=== PATIENT | male | born 1955 | race Caucasian/White ===

== ENCOUNTER 2019-04-08 12:02 | Outpatient (RCR) | payer OTHER, SELFPAY | END 2019-04-29 00:01 | LOC: PULRHB 12:02 | PROVIDERS: Family Provider Internal Medicine Pulmonary Disease; Visit Provider Internal Medicine Pulmonary Disease | DX: J44.9 Chronic obstructive pulmonary disease, unspecified (principal) | CPT/HCPCS: G0424 ×7 ==

== ENCOUNTER 2019-04-30 06:00 | Outpatient (RCR) | payer OTHER, SELFPAY | END 2019-05-30 23:59 | disposition home or self-care (01) | LOC: PULRHB 06:00 | PROVIDERS: Family Provider Internal Medicine Pulmonary Disease; Visit Provider Internal Medicine Pulmonary Disease | DX: J44.9 Chronic obstructive pulmonary disease, unspecified (principal) | CPT/HCPCS: G0424 ==

== ENCOUNTER 2019-06-04 07:11 | Outpatient (RCR) | payer OTHER, SELFPAY | END 2019-06-28 23:59 | disposition home or self-care (01) | LOC: PULRHB 07:11 | PROVIDERS: Family Provider Internal Medicine Pulmonary Disease; Visit Provider Internal Medicine Pulmonary Disease | DX: J44.9 Chronic obstructive pulmonary disease, unspecified (principal) | CPT/HCPCS: G0424 ==

== ENCOUNTER 2019-06-29 06:00 | Outpatient (RCR) | payer OTHER, SELFPAY | END 2019-07-29 23:59 | disposition home or self-care (01) | LOC: PULRHB 06:00 | PROVIDERS: Family Provider Internal Medicine Pulmonary Disease; Visit Provider Internal Medicine Pulmonary Disease | DX: J44.9 Chronic obstructive pulmonary disease, unspecified (principal) | CPT/HCPCS: G0424 ==

== ENCOUNTER 2022-03-12 09:15 | Emergency (ER) | payer OTHER, SELFPAY ==
[2022-03-12 09:23] VITALS: BP 165/98; PULSE 69; RESP 16; TEMP 36.4; O2SAT 98; BMI 23.0
--- NOTE | 2022-03-12 09:39 | W.ED.BACK ---
HPI - Back Pain/Injury General: Chief Complaint: Back Pain/Injury Stated Complaint: Back pain Time Seen by Provider: 03/12/22 09:17 Source: patient Mode of arrival: ambulatory History of Present Illness: 66 yo male presents emergency room with back pain. Evidently this is been a chronic essentially on again off again issue for some time for him recently has become worse. Patient was seen [facility] and was told to come to the emergency room to get an MRI. He has pain that he localizes to the right lower back he is not have any difficulty with bowel or bladder no urinary retention or fecal incontinence. Is no precipitating fall or injury. This been progressively worsening for the last 2 weeks. Does not really have any radicular pain into the legs either. He is taking a lot of aspirin for which only gives moderate relief. MD elicited complaint: back pain Pertinent past history: prior back pain Onset (ago): minute(s) Timing: constant Quality: aching and spasming Location: lumbar spine Radiation: none Exacerbating factors: sitting upright and walking Associated symptoms: Deny abdominal pain, arthralgias, chills, change in bowel habits, difficulty walking, dysuria, fatigue, fecal incontinence, fever(s), hematuria, myalgias, nausea, numbness, syncope, tingling/numbness/burning, urinary frequency, urinary urgency, vomiting or weakness Review of Systems Const: Denies: fever(s), chills, fatigue or malaise ENMT: Denies: throat pain, ear or mastoid pain, nasal discharge or nasal congestion Card: Denies: chest pain, palpitations or syncope Resp: Denies: dyspnea, productive cough or non-productive cough GI: Denies: abdominal pain, nausea, vomiting, fecal incontinence or change in bowel habits : Denies: difficulty urinating, dysuria, urinary frequency, urinary urgency or hematuria Musc: Reports: back pain; Denies: extremity pain Skin/Breast: Denies: rash or pruritus Neuro: Denies: difficulty walking PFSH ED PFSH: Medical History (Updated 03/24/22 @ 06:59 by Leandro Hdez DO) Chronic back pain Social History (Updated 03/24/22 @ 07:00 by Leandro Hdez DO) Smoking and tobacco status: never smoked Alcohol intake: current Physical Exam Const: COMMON NORMALS: no acute distress GENERAL APPEARANCE: cooperative and comfortable ORIENTATION/CONSCIOUSNESS: Yes awake, Yes oriented to person, Yes oriented to place and Yes oriented to time HENMT: COMMON NORMALS: normocephalic, atraumatic and hearing grossly normal bilaterally HEAD & SCALP: normocephalic and atraumatic Resp: COMMON NORMALS: normal respiratory effort, No retractions, No use of accessory muscles and clear to auscultation bilaterally AUSCULTATION: clear to auscultation bilaterally Cardio: COMMON NORMALS: regular rate, regular rhythm and No murmurs present (Cardio) RATE: regular rate RHYTHM: regular rhythm GI: COMMON NORMALS: Soft to palpation and No hepatosplenomegaly present AUSCULTATION: Yes normoactive bowel sounds PALPATION: Yes Soft to palpation, No Tenderness to palpation present (GI), No Guarding due to palpation present (GI) and Yes No hepatosplenomegaly present Extremity: COMMON NORMALS: normal to inspection, capillary refill normal, no clubbing, cyanosis or edema, no calf tenderness and no pedal edema Neuro: SENSORIUM/ORIENTATION: Yes oriented to person, Yes oriented to place and Yes oriented to time OTHER: Straight leg raising is negative sensation lower extremities normal, 5 of 5 strength, dorsal and plantar flexion 5/5 Skin: COMMON NORMALS: no rashes or lesions noted GENERAL SKIN EXAM: no rashes or lesions noted Course Vital Signs: Vital signs: Vital Signs Temperature 97.6 F 03/12/22 10:25 Pulse Rate 69 03/12/22 10:25 Respiratory Rate 16 03/12/22 10:25 Blood Pressure 165/98 03/12/22 10:25 Pulse Oximetry 98 03/12/22 10:25 Oxygen Delivery Ma thod 03/12/22 09:23 MDM - Back Pain/Injury Medical Decision Making No signs of cauda equina syndrome. Started on steroids anti-inflammatories gave muscle relaxers and started Lyrica follow-up with outpatient scheduled MRI. Medical Records I reviewed the patient's medical records. Labs I reviewed the patient's lab results. Discharge Plan Discharge Patient Disposition: Home Clinical Impression: Strain of lumbar region Condition: Stable Prescriptions: New prednisone 20 mg tablet 20 mg PO TID Qty: 15 0RF Rx Instructions: 1 p.o. 3 times daily x3 days, 1 p.o. twice daily x2 days, 1 p.o. daily x2 days diclofenac sodium 75 mg tablet,delayed release (DR/EC) 75 mg PO Q12H PRN (Reason: pain) Qty: 20 0RF tizanidine 4 mg tablet 4 mg PO Q6H PRN (Reason: muscle spasticity) Qty: 20 0RF Rx Instructions: do not exceed 3 doses per 24 hrs Lyrica 75 mg capsule 75 mg PO BID Qty: 60 0RF Discharge Orders: Discharge ED (Routine); Ordered 03/12/22 Ordered By: Leandro Hdez Referrals: Ronen Mcgarry DO [Primary Care Provider] - Discharge Diet: Usual diet Discharge Activity: Increase activity as tolerated Patient Instructions: Opioid Safety, Pain Management Activity Restrictions/Additional Instructions: Follow-up with your primary care doctor for further evaluation possible referral to physical therapy or advanced imaging if does not improve. Coding Level of Care Code ED Addiction Psychiatrist for Makayla Chamberlain
[2022-03-12] MEDS: ketorolac 60 mg/2 mL INJ IM (10:22)
[2022-03-12] MEDS: dexamethasone 10 mg/mL INJ IM (10:23)
[2022-03-12] MEDS: orphenadrine 30 mg/mL Inj 2 mL 60 MG IM (10:23)
[2022-03-12 10:25] VITALS: BP 165/98; PULSE 69; RESP 16; TEMP 36.4; O2SAT 98
== END 2022-03-12 10:30 | disposition home or self-care (01) ==
PROVIDERS: Emergency Provider Family Medicine; PCP Emergency Medicine Emergency Medical Services
DX: S39.012A Strain of muscle, fascia and tendon of lower back, initial encounter (principal); X58.XXXA Exposure to other specified factors, initial encounter; G89.29 Other chronic pain
CPT/HCPCS: 96372; 99284; J1100; J1885; J2360

== ENCOUNTER 2023-06-04 09:12 | Emergency (ER) | payer OTHER, SELFPAY ==
[2023-06-04 09:39] VITALS: BP 112/77; PULSE 94; RESP 12; TEMP 36.5; O2SAT 99; BMI 24.7
--- NOTE | 2023-06-04 09:48 | ED_ITS ---
HPI - Abdominal Pain 2 General: Chief Complaint: Abdominal Pain Stated Complaint: abd pain Time Seen by Provider: 06/04/23 09:12 Source: patient Mode of arrival: ambulatory History of Present Illness: 67-year-old male presents emergency room complaining of right upper quadrant abdominal pain intermittently for the last couple of months. He was seen at the [facility] today and directed here. He had acholic stools he denies any dysuria urgency frequency. He notices worse when he eats better if he does not. He does have a history of hepatitis C and was previously treated and considered to have been cleared. He previously had an appendectomy no other abdominal surgeries. MD elicited complaint: abdominal pain Pertinent past history: none Onset (ago): minute(s) Pain Consistency: constant Location: RUQ Severity: mild Quality: sharp Radiation: back Exacerbating factors: nothing Relieving factors: nothing Associated Symptoms: Reports belching, bloating, nausea, poor appetite and other (Acholic stools); Denies anorexia, change in bowel habits, change in stool character, chills, coffee ground emesis, constipation, GI cramping, diarrhea, dyspepsia, dysuria, excessive flatus, fever(s), heartburn, hematochezia, hematuria, hematemesis, fecal incontinence, loose stools, melena, syncope and vomiting Review of Systems 2 Const: Denies: fever(s) or chills Card: Denies: chest pain or syncope Resp: Denies: dyspnea GI: Reports: nausea, bloating, belching and other (Acholic stools); Denies: abdominal pain, vomiting, hematemesis, coffee ground emesis, heartburn, diarrhea, constipation, GI cramping, excessive flatus, fecal incontinence, change in bowel habits, change in stool character, hematochezia or melena : Denies: dysuria, urinary frequency, urinary urgency or hematuria Musc: Denies: neck pain or back pain Skin/Breast: Denies: rash PFSH ED 2 PFSH: Medical History Chronic back pain Social History Smoking and tobacco/nicotine status: never used tobacco/nicotine Alcohol intake: current Physical Exam 2 Const: COMMON NORMALS: no acute distress GENERAL APPEARANCE: cooperative and comfortable ORIENTATION/CONSCIOUSNESS: Yes awake, Yes oriented to person, Yes oriented to place and Yes oriented to time HENMT: COMMON NORMALS: normocephalic, atraumatic and hearing grossly normal bilaterally HEAD & SCALP: normocephalic and atraumatic Resp: COMMON NORMALS: normal respiratory effort, No retractions, No use of accessory muscles and clear to auscultation bilaterally AUSCULTATION: clear to auscultation bilaterally Cardio: COMMON NORMALS: regular rate, regular rhythm and No murmurs present (Cardio) RATE: regular rate RHYTHM: regular rhythm GI: COMMON NORMALS: Soft to palpation and No hepatosplenomegaly present A USCULTATION: Yes normoactive bowel sounds PALPATION: Yes Soft to palpation, No Tenderness to palpation present (GI), No Guarding due to palpation present (GI) and Yes No hepatosplenomegaly present Extremity: COMMON NORMALS: normal to inspection, capillary refill normal, no clubbing, cyanosis or edema, no calf tenderness and no pedal edema Neuro: SENSORIUM/ORIENTATION: Yes oriented to person, Yes oriented to place and Yes oriented to time Skin: COMMON NORMALS: no rashes or lesions noted GENERAL SKIN EXAM: no rashes or lesions noted Course 2 Vital Signs: Vital signs: Vital Signs Temperature 97.7 F 06/04/23 09:39 Pulse Rate 94 06/04/23 09:39 Respiratory Rate 12 06/04/23 09:39 Blood Pressure 112/77 06/04/23 09:39 Pulse Oximetry 99 06/04/23 09:39 Oxygen Delivery Me thod Room Air 06/04/23 09:39 MDM - Abdominal Pain Medical Decision Making Labs and imaging reviewed no leukocytosis normal liver function normal T. bili gallbladder ultrasound unremarkable. Patient otherwise feeling fine discharge home follow-up with primary care for further evaluation if persisting. Patient did have 5-9 white blood cells per high-power field however is not having any urinary tract symptoms, +1 leukocyte Estrace negative nitrates culture of urine pending. Medical Records I reviewed the patient's medical records. Lab Data I reviewed the patient's lab results. 06/04/23 10:05 06/04/23 10:05 Labs/Radiology: Laboratory Results WBC 10.31 10^3/uL (3.29-11.43) 06/04/23 10:05 RBC 4.90 10^6/uL (3.85-5.65) 06/04/23 10:05 Hgb 15.80 g/dL (11.27-16.99) 06/04/23 10:05 Hct 45.7 % (37-53) 06/04/23 10:05 MCV 93.3 fl (82-101) 06/04/23 10:05 MCH 32.2 pg (27-33) 06/04/23 10:05 MCHC 34.6 g/dL (30-55) 06/04/23 10:05 RDW 12.5 % (12.1-15.1) 06/04/23 10:05 Plt Count 279 10^3/cmm (157-399) 06/04/23 10:05 MPV 9.2 fL (7.4-10.4) 06/04/23 10:05 Neut % (Auto) 74.3 % 06/04/23 10:05 Lymph % (Auto) 16.2 % 06/04/23 10:05 Chambers % (Auto) 8.8 % 06/04/23 10:05 Eos % (Auto) 0.0 % 06/04/23 10:05 Baso % (Auto) 0.3 % 06/04/23 10:05 Neut # (Auto) 7.66 10^3/uL (1.8-7.7) 06/04/23 10:05 Lymph # (Auto) 1.7 10^3/uL (0.8-4.8) 06/04/23 10:05 Chambers # (Auto) 0.9 10^3/uL (0.2-0.9) 06/04/23 10:05 Eos # (Auto) 0.0 10^3/uL (0.0-0.8) 06/04/23 10:05 Baso # (Auto) 0.0 10^3/uL (0.0-0.1) 06/04/23 10:05 Nucleated RBC % (auto) 0 % 06/04/23 10:05 Nucleated RBCs # 0.0 /100WBC 06/04/23 10:05 Sodium 137 mmol/L (136-145) 06/04/23 10:05 Potassium 4.3 mmol/L (3.5-5.1) 06/04/23 10:05 Chloride 106 mmol/L (98-107) 06/04/23 10:05 Carbon Dioxide 21 mmol/L (22-29) L 06/04/23 10:05 Anion Gap 14.3 (5-19) 06/04/23 10:05 BUN 18 mg/dL (8-23) 06/04/23 10:05 Creatinine 1.1 mg/dL (0.7-1.2) 06/04/23 10:05 GFR Calculation 67.2 mL/min (90-130) L 06/04/23 10:05 Glucose 110 mg/dL (65-115) 06/04/23 10:05 Calculated Osmolality 287 mOsm/kg (285-295) 06/04/23 10:05 Calcium 8.2 mg/dL (8.5-10.5) L 06/04/23 10:05 Total Bilirubin 0.2 mg/dL (0.15-1.2) 06/04/23 10:05 AST 11 U/L (0-40) 06/04/23 10:05 ALT 10 U/L (0-41) 06/04/23 10:05 Alkaline Phosphatase 52 U/L (40-130) 06/04/23 10:05 Total Protein 4.7 g/dL (6.6-8.7) L 06/04/23 10:05 Albumin 2.7 g/dL (3.5-5.2) L 06/04/23 10:05 Globulin 2.0 g/dL (1.3-4.6) 06/04/23 10:05 Lipase 15 U/L (13-60) 06/04/23 10:05 Urine Color Yellow (Yellow) 06/04/23 11:00 Urine Appearance Sl hazy (CLEAR) A 06/04/23 11:00 Urine pH 5 (5-7) 06/04/23 11:00 Ur Specific [place] 1.020 (1.005-1.030) 06/04/23 11:00 Urine Protein Neg (Negative) 06/04/23 11:00 Urine Glucose (UA) Norm (Normal) 06/04/23 11:00 Urine Ketones 1+ (Negative) H 06/04/23 11:00 Urine Blood Neg (Negative) 06/04/23 11:00 Urine Nitrate Negative (Negative) 06/04/23 11:00 Urine Bilirubin Neg (Negative) 06/04/23 11:00 Urine Urobilinogen 1 mg/dL (Negative) H 06/04/23 11:00 Ur Leukocyte Esterase 1+ (Negative) H 06/04/23 11:00 Urine RBC 0-4 /hpf (0-2) H 06/04/23 11:00 Urine WBC 5-10 /hpf (0-5) H 06/04/23 11:00 Ur Squamous Epith Cells 0-4 /hpf (0-5) H 06/04/23 11:00 Calcium Oxalate Crystal 5-10 /hpf H 06/04/23 11:00 Amorphous Sediment Not Reportable 06/04/23 11:00 Urine Bacteria Trace /hpf (NONE) 06/04/23 11:00 Urine Mucus 1+ /hpf 06/04/23 11:00 All radiology interpretation(s) finalized by discharge Discharge Plan Discharge Patient Disposition: Home Clinical Impression: Abdominal pain Condition: Stable Prescriptions: New Protonix 40 mg tablet,delayed release (DR/EC) 40 mg PO DAILY Qty: 30 0RF No Action Zyrtec 10 mg Tablet 10 mg PO DAILY amlodipine 5 mg Tablet 5 mg PO DAILY Vitamin C 500 mg Tablet 500 mg PO DAILY Vitamin D3 50 mcg (2,000 unit) Tablet 50 mcg PO DAILY Discharge Orders: Discharge ED (Routine); Ordered 06/04/23 Ordered By: Leandro Hdez Referrals: Ronen Mcgarry DO [Primary Care Provider] - Discharge Diet: Low Fat Discharge Activity: Increase activity as tolerated Patient Instructions: Abdominal Pain (ED), Opioid Safety, Pain Management Activity Restrictions/Additional Instructions: Thank you for choosing [facility] for your healthcare needs today. Please realize this is an emergency room and that we are providing you with a medical screening exam and this may not be complete and all inclusive of all the testing and or work up that you may need to determine your ailment or severity of your illness. It is very important that you follow up as instructed or that you return to the Emergency Department should you have concerns or if your condition changes or worsens in any way. You are seen today for chronic abdominal pain laboratory tests are unremarkable liver functions and bilirubin were normal gallbladder ultrasound was negative. If. Have persistent pain follow-up with your primary care doctor. We did give you prescription for Protonix to take 1 daily. Coding Level of Care Code ED [facility]essionals for Makayla Chamberlain
[2023-06-04 10:14] LABS: Basophils % 0.3 %; Hematocrit 45.7 % (37-53); Lymphocytes # 1.7 10^3/uL (0.8-4.8); Lymphocytes % 16.2 %; Mean Corpuscular HGB Conc 34.6 g/dL (30-55); Mean Corpuscular Hemoglobin 32.2 pg (27-33); Mean Corpuscular Volume 93.3 fl (82-101); Mean Platelet Volume 9.2 fL (7.4-10.4); Monocytes # 0.9 10^3/uL (0.2-0.9); Monocytes % 8.8 %; Neutrophils # 7.66 10^3/uL (1.8-7.7); Neutrophils % 74.3 %; Nucleated Red Blood Cells % 0 %; Platelet Count 279 10^3/cmm (157-399); Red Cell Distribution Width 12.5 % (12.1-15.1); White Blood Count 10.31 10^3/uL (3.29-11.43)
[2023-06-04 10:29] LABS: Alanine Aminotransferase 10 U/L (0-41); Albumin Level 2.7 g/dL (3.5-5.2); Alkaline Phosphatase 52 U/L (40-130); Anion Gap 14.3 (5-19); Aspartate Amino Transferase 11 U/L (0-40); Blood Urea Nitrogen 18 mg/dL (8-23); Calcium 8.2 mg/dL (8.5-10.5); Carbon Dioxide 21 mmol/L (22-29); Chloride 106 mmol/L (98-107); Glomerular Filtration Rate 67.2 mL/min (90-130); Glucose 110 mg/dL (65-115); Lipase 15 U/L (13-60); Osmolality Calculated 287 mOsm/kg (285-295); Potassium 4.3 mmol/L (3.5-5.1); Sodium 137 mmol/L (136-145); Total Bilirubin 0.2 mg/dL (0.15-1.2); Total Protein 4.7 g/dL (6.6-8.7)
--- NOTE | 2023-06-04 10:32 | US_ITS ---
WS: [id number] RIGHT UPPER QUADRANT ULTRASOUND HISTORY: RUQ abd pain COMPARISON: None available. Liver: 19.1 cm in length. Moderately enlarged liver. Coarse echotexture throughout the liver from hep atic steatosis. No mass identified and no bile duct dilatation. Portal Vein: Normal hepatopetal flow with monophasic waveform. Gallbladder: Normally distended gallbladder with no stones or wall thickening. CBD: 0.4 cm Pancreas: Completely obscured by bowel gas and body habitus. Right kidney: 9.3 cm in length. Normal size and echogenicity. No hydronephrosis or mass. Aorta and IVC: Not visualized. No ascites. IMPRESSION: 1. Normal gallbladder. 2. Hepatic steatosis and hepatomegaly.
[2023-06-04 12:02] LABS: Add Urine Microscopic? YES; Bilirubin Urine Neg (Negative); Blood Urine Neg (Negative); Glucose Urine UA Norm (Normal); Ketones Urine 1+ (Negative); Leukocyte Esterase Urine 1+ (Negative); Nitrate Urine Negative (Negative); Protein Urine Neg (Negative); RBC Urine 0-4 /hpf (0-2); Squamous Epithelial Cell Urine 0-4 /hpf (0-5); Urine Appearance SL Hazy (CLEAR); Urine Color Yellow (Yellow); Urobilinogen Urine 1 mg/dL (Negative); pH Urine 5 (5-7)
[2023-06-04 12:03] LABS: Add Urine Culture? No; Bacteria Urine TRACE /hpf; Mucus Urine 1+ /hpf
== END 2023-06-04 13:05 | disposition home or self-care (01) ==
PROVIDERS: Emergency Provider Family Medicine; PCP Emergency Medicine Emergency Medical Services
DX: R10.11 Right upper quadrant pain (principal)
CPT/HCPCS: 36415; 76705; 80053; 81001; 83690; 85025; 99284

== ENCOUNTER 2023-11-02 12:18 | Outpatient (CLI) | payer OTHER, SELFPAY ==
--- NOTE | 2023-11-02 12:28 | USR_ITS ---
PROCEDURE INFORMATION: Exam: US Abdomen Complete Exam date and time: 11/02/2023 12:32 PM Age: 68 years old Clinical indication: Abdominal pain; Generalized; Additional info: Liver and aorta TECHNIQUE: Imaging protocol: Real-time ultrasound of the abdomen with image documentation. Complete exam. COMPARISON: US gall bladder [id number] 06/04/2023 11:09 AM FINDINGS: Liver: Unremarkable. Gallbladder: No gallstones. No gallbladder wall thickening or pericholecystic fluid. Negative sonographic Medina's sign, as per the position classification manager. Biliary ducts: Normal. No stones. No dilation. Pancreas: Unremarkable as visualized. Right kidney: 0.7 x 0.7 x 1.1 cm lower pole cyst. No solid mass. No definite stones. No hydronephrosis. Left kidney: 2.2 x 1.9 x 1.9 cm cyst in the midportion. No solid mass. No definite stones. No hydronephrosis. Spleen: Unremarkable. Aorta: Unremarkable as visualized. No aneurysm. Inferior vena cava: Unremarkable as visualized. US/US abdomen complete* [id number] IMPRESSION: No acute sonographic findings.
== END 2023-11-02 12:19 | disposition home or self-care (01) ==
PROVIDERS: PCP Emergency Medicine Emergency Medical Services; Visit Provider Nurse Practitioner Family
DX: R10.84 Generalized abdominal pain (principal); N28.1 Cyst of kidney, acquired
CPT/HCPCS: 76700